=== PATIENT | female | born 1950 | race Caucasian/White ===

== ENCOUNTER 2018-06-14 14:13 | Outpatient (REF) | payer MEDICARE, SELFPAY ==
[2018-06-14 20:44] LABS: Anion Gap 8.7 mmol/L (3-11); BUN 17 mg/dL (7-18); CO2 28.3 mmol/L (21.0-32.0); CREATININE 1.08 mg/dL (0.55-1.02); Calcium 9.6 mg/dL (8.5-10.1); Chloride 104 mmol/L (98-107); Estimated GFR 50.16 (mL/min/1.73m2); Glucose 108 mg/dL (70-100); Sodium 141 mmol/L (136-145)
== END 2018-06-14 14:14 ==
LOC: NCHCN 14:13
PROVIDERS: PCP Nurse Practitioner Family; Visit Provider Nurse Practitioner Family
DX: E11.9 Type 2 diabetes mellitus without complications (principal); I10 Essential (primary) hypertension; R53.83 Other fatigue
CPT/HCPCS: 80048

== ENCOUNTER 2019-01-01 12:01 | Outpatient (REF) | payer MEDICARE, SELFPAY ==
[2019-01-01 21:56] LABS: Hemoglobin A1C 6.3 % (4.5-6.2)
[2019-01-01 22:01] LABS: Cholesterol 154 mg/dL (50-200); HDL Cholesterol 30 mg/dL (40-60); LDL CHOLESTEROL 97 mg/dL (<100); Triglyceride 177 mg/dL (30-150)
== END 2019-01-01 12:21 ==
LOC: NCHCN 12:01
PROVIDERS: PCP Nurse Practitioner Family; Visit Provider Registered Nurse
DX: E11.9 Type 2 diabetes mellitus without complications (principal); I10 Essential (primary) hypertension
CPT/HCPCS: 80061; 83721; 83036

== ENCOUNTER 2019-07-10 11:54 | Outpatient (REF) | payer MEDICARE, SELFPAY ==
[2019-07-10 21:14] LABS: BUN 15 mg/dL (7-18); Calcium 9.5 mg/dL (8.5-10.1); Chloride 104 mmol/L (98-107); Estimated GFR 54.66 (mL/min/1.73m2); Glucose 97 mg/dL (70-100); Potassium 4.3 mmol/L (3.5-5.1); Sodium 144 mmol/L (136-145)
[2019-07-10 21:36] LABS: COMMENT (LAB VIEW ONLY) < 13.00 mg/dL
== END 2019-07-10 12:14 ==
LOC: NCHCN 11:54
PROVIDERS: PCP Nurse Practitioner Family; Visit Provider Registered Nurse
DX: E11.9 Type 2 diabetes mellitus without complications (principal)
CPT/HCPCS: 80048; 82043; 82570

== ENCOUNTER 2020-05-26 22:27 | Outpatient (REF) | payer MEDICARE, SELFPAY ==
[2020-05-26 20:10] LABS: Hemoglobin A1C 6.2 % (3.8-5.6)
[2020-05-26 20:21] LABS: COMMENT (LAB VIEW ONLY) < 13.00 mg/dL
[2020-05-26 20:37] LABS: ALT 29 U/L (14-59); AST 13 U/L (15-37); Alkaline Phosphatase 121 U/L (46-116); Anion Gap 11.3 mmol/L (3-11); BUN 25 mg/dL (7-18); Bilirubin, Total 0.4 mg/dL (0.2-1.0); CO2 27.7 mmol/L (21.0-32.0); CREATININE 1.04 mg/dL (0.55-1.02); Calcium 9.7 mg/dL (8.5-10.1); Calculated LDL 114 mg/dL (<100); Chloride 105 mmol/L (98-107); Cholesterol 179 mg/dL (<200); Estimated GFR 52.09 (mL/min/1.73m2); Glucose 116 mg/dL (74-106); HDL Cholesterol 30 mg/dL (40-60); Potassium 4.1 mmol/L (3.5-5.1); Sodium 144 mmol/L (136-145); Total Protein 7.2 g/dL (6.4-8.2); Triglyceride 177 mg/dL (<150); Vitamin B12 296 pg/mL (193-986)
[2020-05-28 11:47] LABS: Hepatitis C Ab w Rflx HCV PCR Negative (Negative)
== END 2020-05-26 22:47 ==
LOC: NCHCN 22:27
PROVIDERS: PCP Nurse Practitioner Family; Visit Provider Nurse Practitioner Family
DX: E11.9 Type 2 diabetes mellitus without complications (principal); E78.5 Hyperlipidemia, unspecified; I10 Essential (primary) hypertension; Z11.59 Encounter for screening for other viral diseases
CPT/HCPCS: 80053; 80061; 86803; 82043; 82570; 82607; 83036

== ENCOUNTER 2020-07-09 10:34 | Outpatient (REF) | payer MEDICARE, SELFPAY ==
[2020-07-09 22:06] LABS: ALT 31 U/L (14-59); AST 16 U/L (15-37); Albumin 4.1 g/dL (3.4-5.0); Alkaline Phosphatase 134 U/L (46-116); Anion Gap 13.1 mmol/L (3-11); BUN 19 mg/dL (7-18); Bilirubin, Total 0.4 mg/dL (0.2-1.0); CO2 27.9 mmol/L (21.0-32.0); CREATININE 1.15 mg/dL (0.55-1.02); Calcium 9.4 mg/dL (8.5-10.1); Chloride 103 mmol/L (98-107); Estimated GFR 46.38 (mL/min/1.73m2); Glucose 121 mg/dL (74-106); Potassium 3.8 mmol/L (3.5-5.1); Sodium 144 mmol/L (136-145); Total Protein 7.5 g/dL (6.4-8.2)
[2020-07-09 22:18] LABS: Calculated LDL 91 mg/dL (<100); Cholesterol 152 mg/dL (<200); HDL Cholesterol 31 mg/dL (40-60); Triglyceride 154 mg/dL (<150)
== END 2020-07-09 10:54 ==
LOC: NCHCN 10:34
PROVIDERS: PCP Nurse Practitioner Family; Visit Provider Nurse Practitioner Family
DX: E78.5 Hyperlipidemia, unspecified (principal); I10 Essential (primary) hypertension; E11.9 Type 2 diabetes mellitus without complications
CPT/HCPCS: 80053; 80061

== ENCOUNTER 2020-11-15 15:10 | Outpatient (REF) | payer MEDICARE, SELFPAY ==
[2020-11-15 14:09] LABS: Anion Gap 9.9 mmol/L (3-11); BUN 21 mg/dL (7-18); CO2 28.1 mmol/L (21.0-32.0); Calcium 9.5 mg/dL (8.5-10.1); Chloride 104 mmol/L (98-107); Glucose 127 mg/dL (74-106); Potassium 4.2 mmol/L (3.5-5.1); Sodium 142 mmol/L (136-145)
--- OUTSIDE RECORDS SUMMARY | 2020-11-15 15:15 | XMS_ITS ---
:1950 Author Care Team Providers Name Role Phone ADAM ROWLEY MD Specialty Sales Representative [phone] NICHOLE CASH MD Stave Hewer [phone] BREANNA HENSLEY Primary Care Provider [phone] Allergies Code Code System Name Reaction Severity Status Onset NKDA ? Medications Name Status Start Date Stop Date ? ? Advair HFA 230 mcg-21 Completed ? 06/19/2019 mcg/actuation aerosol inhaler advair hfa 230-21 mcg/act aero Completed ? 0 03/18/2018 aspirin 81 mg tablet,delayed release Active ? Not available Take 1 tablet every day by oral route. azithromycin 250 mg tablet Completed ? 07/05 azithromycin 250 mg tabs Completed ? 020 cephalexin 500 mg caps Completed ? 8 chlorthalidone 50 mg tablet Completed ? 01/2018 chlorthalidone 50 mg tabs Completed ? 2017 citalopram hydrobromide 20 mg Completed ? tabs Combivent Respimat 20 mcg-100 Completed ? mcg/actuation solution for inhalation combivent respimat 20-100 Completed ? 2017 mcg/act aers fluticasone propionate 50 Completed ? 2019 mcg/act susp fluticasone propionate 50 Active ? Not av ailable mcg/actuation nasal spray,suspension losartan 100 mg tablet Active ? Not avail able losartan potassium 100 mg tabs Completed ? 0 07/05/2020 Mapap (acetaminophen) 325 mg Active ? Not available tablet metformin 500 mg tablet Active ? Not avai lable metformin hcl 500 mg tabs Completed ? 2019 metformin hydrochloride 500 mg Completed ? 0 07/05/2020 tabs metoprolol succinate ER 50 mg Completed ? tablet,extended release 24 hr metoprolol succinate er 50 mg Completed ? tb24 mirtazapine 15 mg tablet Completed ? 020 mirtazapine 15 mg tabs Completed ? 0 mirtazapine 30 mg tablet Active ? Not benita ilable mirtazapine 30 mg tabs Completed ? 0 nicotine (polacrilex) 2 mg Active ? Not a vailable buccal lozenge nicotine 21 mg/24 hr daily Completed ? 03/18 transdermal patch nyamyc 899132 unit/gm powd Completed ? 03/18 nystatin 060304 unit/gm powd Completed ? Nystop 100,000 unit/gram topical Completed ? 07/05/2020 powder nystop 532637 unit/gm powd Completed ? 07/05 OneTouch Delica Lancets 30 gauge Active ? Not available OneTouch Verio Meter Active ? Not availab le OneTouch Verio test strips Active ? Not a vailable oxaprozin 600 mg tablet Completed ? 03/18/20 18 oxaprozin 600 mg tabs Completed ? 03/18/2018 potassium chloride ER 10 mEq Active ? Not available capsule,extended release potassium chloride er 10 meq Completed ? cpcr potassium chloride ER 20 mEq Completed ? 01/2018 tablet,extended release(part/cryst) potassium chloride er 20 meq Completed ? 01/2018 tbcr pravastatin 40 mg tablet Completed ? 020 pravastatin 80 mg tablet Active ? Not benita ilable pravastatin sodium 40 mg tabs Completed ? PreserVision AREDS-2 Active 04/14/2019 Not availab le 1 qam and qhs proair hfa 108 (90 base) mcg/act Completed ? 03/18/2018 aers ProAir HFA 90 mcg/actuation Active ? Not available aerosol inhaler proair respiclick 108 (90 base) Completed ? 07/05/2020 mcg/act aepb ProAir RespiClick 90 Active ? Not availab le mcg/actuation breath activated terbinafine HCl 1 % topical Completed ? 01/2018 cream torsemide 20 mg tablet Active ? Not avail able torsemide 20 mg tabs Completed ? 07/05/2020 Trelegy Ellipta 100 mcg-62.5 Active ? Not available mcg-25 mcg powder for inhalation trelegy ellipta 100-62.5-25 Completed ? 06/16 mcg/inh aepb Vitamin B12 Active ? Not available Problems Name Status Onset Date Source ? Diabetes Mellitus Active 03/18/2018 ? Chronic Obstructive Lung Disease Active 03/18/2018 ? Procedures Date Name Performed by ? 03/22/2018 LDCT, Chest, for Lung Cancer [facility] (Internal) Screening [address] [place] [address] ([address]) 03/18/2019 LDCT, Chest, for Lung Cancer [facility] (Internal) Screening [address] [place] [address] (Work [address]) 06/19/2019 LDCT, Chest, for Lung Cancer [facility] (Internal) Screening [address] [place] [address] ([address]) 05/10/2020 LDCT, Chest, for Lung Cancer [facility] (Internal) Screening [address] [place] [address] (Work [address]) 05/10/2020 LDCT, Chest, for Lung Cancer [facility] (Internal) Screening [address] [place] [address] (Work [address]) 07/05/2020 LDCT, Chest, for Lung Cancer [facility] (Internal) Screening [address] [place] [address] (Work [address]) Results Lab Results None recorded. Past Encounters 07/05/2020 Chronic Obstructive Lung Disease; Ex-smo mary Rowley MD: [address] [place] [address], Ph. 06/19/2019 Chronic Obstructive Lung Disease; Ex-smo mary Rowley MD: [address] [place] [address], Ph. Social History Tobacco Smoking Status Former Smoker Notes: February 12t h quit Vaccine List Vaccine Type influenza, high-dose, quadrivalent 07/05/2020?0.7 mL pneumococcal conjugate PCV 13 12/20/2015 pneumococcal polysaccharide PPV23 11/15/2002 08/01/2013 03/18/2018?0.5 mL 03/18/2018?0.5 mL Plan of Care Reminders Provider Appointments None ? ? recorded. Lab None ? ? recorded. Referral None ? ? recorded. Procedures None ? ? recorded. Surgeries None ? ? recorded. Imaging None ? ? recorded. Vitals 07/05/2020 03:30PM Follow Up 30 Weight Blood Pressure 111.3 kg 182/87 mm[Hg] 06/19/2019 11:30AM Follow Up 30 Height Weight BMI Blood Pressure 165.1 cm 108.9 kg 40 kg/m2 162/85 mm[Hg] 05/22/2018 03:00PM Consult 45 Height Weight BMI Blood Pressure 165.1 cm 109 kg 40 kg/m2 138/70 mm[Hg] 03/18/2018 10:00AM Consult 45 Height Weight BMI Blood Pressure 165.1 cm 109.77 kg 40.3 kg/m2 148/70 mm[Hg]
== END 2020-11-15 15:30 ==
LOC: NCHCN 15:10
PROVIDERS: PCP Nurse Practitioner Family; Visit Provider Nurse Practitioner Family
DX: I10 Essential (primary) hypertension (principal)
CPT/HCPCS: 80048

== ENCOUNTER 2021-05-24 14:55 | Outpatient (REF) | payer MEDICARE, SELFPAY ==
[2021-05-24 21:01] LABS: Hemoglobin A1C 6.5 % (<5.7)
[2021-05-24 21:30] LABS: ALT 21 U/L (14-59); AST 16 U/L (15-37); Albumin 3.9 g/dL (3.4-5.0); Alkaline Phosphatase 122 U/L (46-116); BUN 20 mg/dL (7-18); Bilirubin, Total 0.5 mg/dL (0.2-1.0); Calcium 9.3 mg/dL (8.5-10.1); Calculated LDL 84 mg/dL (<100); Chloride 107 mmol/L (98-107); Cholesterol 146 mg/dL (<200); Estimated GFR 54.35 (mL/min/1.73m2); Glucose 114 mg/dL (74-106); HDL Cholesterol 30 mg/dL (40-60); Potassium 4.4 mmol/L (3.5-5.1); Sodium 145 mmol/L (136-145); Total Protein 7.1 g/dL (6.4-8.2); Triglyceride 164 mg/dL (<150); Vitamin B12 762 pg/mL (193-986)
[2021-05-25 16:35] LABS: GGT 99 U/L (5-55)
== END 2021-05-24 14:56 | disposition home or self-care (01) ==
LOC: NCHCN 14:55
PROVIDERS: PCP Nurse Practitioner Family; Visit Provider Nurse Practitioner Family
DX: E11.9 Type 2 diabetes mellitus without complications (principal); R74.8 Abnormal levels of other serum enzymes; E78.5 Hyperlipidemia, unspecified; I10 Essential (primary) hypertension
CPT/HCPCS: 80053; 80061; 82607; 82977; 83036

== ENCOUNTER 2021-12-08 18:38 | Outpatient (REF) | payer MEDICARE, SELFPAY ==
[2021-12-08 14:57] LABS: ALT 21 U/L (14-59); AST 10 U/L (15-37); Albumin 3.6 g/dL (3.4-5.0); Alkaline Phosphatase 115 U/L (46-116); Anion Gap 7.6 mmol/L (3-11); BUN 19 mg/dL (7-18); Bilirubin, Total 0.3 mg/dL (0.2-1.0); CO2 28.4 mmol/L (21.0-32.0); CREATININE 0.9 mg/dL (0.55-1.02); Calcium 9.3 mg/dL (8.5-10.1); Chloride 108 mmol/L (98-107); Glucose 118 mg/dL (74-106); Potassium 4.1 mmol/L (3.5-5.1); Sodium 144 mmol/L (136-145); Total Protein 6.8 g/dL (6.4-8.2)
== END 2021-12-08 18:39 | disposition home or self-care (01) ==
LOC: NCHCN 18:38
PROVIDERS: PCP Nurse Practitioner Family; Visit Provider Nurse Practitioner Family
DX: E11.9 Type 2 diabetes mellitus without complications (principal); R74.8 Abnormal levels of other serum enzymes
CPT/HCPCS: 80053

== ENCOUNTER 2022-06-08 15:18 | Outpatient (REF) | payer MEDICARE, SELFPAY ==
[2022-06-08 16:10] LABS: ALT 29 U/L (14-59); AST 18 U/L (15-37); Albumin 3.7 g/dL (3.4-5.0); Alkaline Phosphatase 112 U/L (46-116); Anion Gap 9.8 mmol/L (3-11); BUN 19 mg/dL (7-18); Bilirubin, Total 0.6 mg/dL (0.2-1.0); CO2 31.2 mmol/L (21.0-32.0); CREATININE 0.9 mg/dL (0.55-1.02); Calcium 9.2 mg/dL (8.5-10.1); Calculated LDL 69 mg/dL (<100); Chloride 105 mmol/L (98-107); Cholesterol 135 mg/dL (<200); Glucose 115 mg/dL (74-106); HDL Cholesterol 33 mg/dL (40-60); Potassium 4.2 mmol/L (3.5-5.1); Sodium 146 mmol/L (136-145); Total Protein 7.5 g/dL (6.4-8.2); Triglyceride 167 mg/dL (<150)
[2022-06-08 16:30] LABS: Vitamin D 25 Total 11.7 ng/mL (30-100)
== END 2022-06-08 15:19 | disposition home or self-care (01) ==
LOC: NCHCN 15:18
PROVIDERS: PCP Nurse Practitioner Family; Visit Provider Nurse Practitioner Family
DX: E78.5 Hyperlipidemia, unspecified (principal); M85.80 Other specified disorders of bone density and structure, unspecified site; I10 Essential (primary) hypertension
CPT/HCPCS: 80053; 80061; 82306

== ENCOUNTER 2022-09-18 22:01 | Outpatient (REF) | payer MEDICARE, SELFPAY ==
[2022-09-18 22:10] LABS: Anion Gap 7.1 mmol/L (3-11); BUN 21 mg/dL (7-18); CO2 30.9 mmol/L (21.0-32.0); Calcium 9.9 mg/dL (8.5-10.1); Chloride 105 mmol/L (98-107); Estimated GFR 59.12 (mL/min/1.73m2); Glucose 112 mg/dL (74-106); Potassium 4.7 mmol/L (3.5-5.1); Sodium 143 mmol/L (136-145)
[2022-09-18 22:37] LABS: Vitamin D 25 Total 22.1 ng/mL (30-100)
== END 2022-09-18 22:02 | disposition home or self-care (01) ==
LOC: NCHCN 22:01
PROVIDERS: PCP Nurse Practitioner Family; Visit Provider Nurse Practitioner Family
DX: E11.9 Type 2 diabetes mellitus without complications (principal); I10 Essential (primary) hypertension; E55.9 Vitamin D deficiency, unspecified; F43.23 Adjustment disorder with mixed anxiety and depressed mood; R91.1 Solitary pulmonary nodule
CPT/HCPCS: 80048; 82306

== ENCOUNTER 2022-11-24 12:58 | Outpatient (REF) | payer MEDICARE, SELFPAY ==
[2022-11-24 16:56] LABS: Vitamin D 25 Total 27.6 ng/mL (30-100)
== END 2022-11-24 12:59 | disposition home or self-care (01) ==
LOC: NCHCN 12:58
PROVIDERS: PCP Nurse Practitioner Family; Visit Provider Nurse Practitioner Family
DX: E55.9 Vitamin D deficiency, unspecified (principal)
CPT/HCPCS: 82306

== ENCOUNTER 2022-12-22 21:30 | Outpatient (REF) | payer MEDICARE, SELFPAY ==
[2022-12-22 22:17] LABS: COMMENT (LAB VIEW ONLY) 128.29 mg/dL; Microalb ug/mg Crea 4.2 ug/mg Cr
== END 2022-12-22 21:31 | disposition home or self-care (01) ==
LOC: NCHCN 21:30
PROVIDERS: PCP Nurse Practitioner Family; Visit Provider Nurse Practitioner Family
DX: E11.9 Type 2 diabetes mellitus without complications (principal)
CPT/HCPCS: 82043; 82570

== ENCOUNTER 2023-06-26 19:45 | Outpatient (REF) | payer MEDICARE, SELFPAY ==
[2023-06-26 17:52] LABS: ALT 21 U/L (14-59); AST 12 U/L (15-37); Albumin 3.4 g/dL (3.4-5.0); Alkaline Phosphatase 104 U/L (46-116); Anion Gap 8.8 mmol/L (3-11); BUN 18 mg/dL (7-18); Bilirubin, Total 0.4 mg/dL (0.2-1.0); CO2 27.2 mmol/L (21.0-32.0); Calcium 9.6 mg/dL (8.5-10.1); Chloride 106 mmol/L (98-107); Estimated GFR 58.75 (mL/min/1.73m2); Glucose 110 mg/dL (74-106); Potassium 4.4 mmol/L (3.5-5.1); Sodium 142 mmol/L (136-145); TSH (W/Ref FT4) 1.67 uIU/mL (0.36-3.74); Total Protein 7.1 g/dL (6.4-8.2); Vitamin B12 1894 pg/mL (193-986)
== END 2023-06-26 19:46 | disposition home or self-care (01) ==
LOC: NCHCN 19:45
PROVIDERS: PCP Nurse Practitioner Family; Visit Provider Nurse Practitioner Family
DX: E11.9 Type 2 diabetes mellitus without complications (principal); R41.3 Other amnesia; I10 Essential (primary) hypertension; E55.9 Vitamin D deficiency, unspecified
CPT/HCPCS: 80053; 82306; 82043; 82570; 82607; 84443

== ENCOUNTER 2024-05-19 18:27 | Outpatient (REF) | payer MEDICARE, SELFPAY ==
[2024-05-20 07:54] LABS: ALT 21 U/L (14-59); AST 12 U/L (15-37); Albumin 3.8 g/dL (3.4-5.0); Alkaline Phosphatase 115 U/L (46-116); Anion Gap 9.1 mmol/L (3-11); BUN 22 mg/dL (7-18); CO2 31.9 mmol/L (21.0-32.0); CREATININE 1.2 mg/dL (0.55-1.02); Calcium 10.5 mg/dL (8.5-10.1); Calculated LDL 63 mg/dL (<100); Chloride 105 mmol/L (98-107); Cholesterol 146 mg/dL (<200); Estimated GFR 46.91 (mL/min/1.73m2); Glucose 138 mg/dL (74-106); HDL Cholesterol 33 mg/dL (40-60); Potassium 4.7 mmol/L (3.5-5.1); Sodium 146 mmol/L (136-145); Total Protein 7.1 g/dL (6.4-8.2); Triglyceride 252 mg/dL (<150); Vitamin B12 > 2000 pg/mL (193-986)
== END 2024-05-19 18:28 | disposition home or self-care (01) ==
LOC: NCHCN 18:27
PROVIDERS: PCP Nurse Practitioner Family; Visit Provider Nurse Practitioner Family
DX: E11.9 Type 2 diabetes mellitus without complications (principal); R79.89 Other specified abnormal findings of blood chemistry; Z79.899 Other long term (current) drug therapy
CPT/HCPCS: 80053; 80061; 82607

== ENCOUNTER 2024-07-23 18:25 | Outpatient (REF) | payer MEDICARE, SELFPAY ==
[2024-07-23 22:29] LABS: ALT 20 U/L (14-59); AST 12 U/L (15-37); Albumin 3.9 g/dL (3.4-5.0); Alkaline Phosphatase 125 U/L (46-116); Anion Gap 10.1 mmol/L (3-11); BUN 27 mg/dL (7-18); Bilirubin, Total 0.48 mg/dL (0.2-1.0); CO2 31.9 mmol/L (21.0-32.0); CREATININE 1.2 mg/dL (0.55-1.02); Calcium 10.2 mg/dL (8.5-10.1); Chloride 105 mmol/L (98-107); Estimated GFR 46.91 (mL/min/1.73m2); Glucose 111 mg/dL (74-106); Potassium 4.8 mmol/L (3.5-5.1); Sodium 147 mmol/L (136-145); Total Protein 7.5 g/dL (6.4-8.2); Vitamin D 25 Total 58.2 ng/mL (30-100)
[2024-07-24 20:55] LABS: Parathyroid Hormone,Intact 124 pg/mL (19-88)
== END 2024-07-23 18:26 | disposition home or self-care (01) ==
LOC: NCHCN 18:25
PROVIDERS: PCP Nurse Practitioner Family; Visit Provider Nurse Practitioner Family
DX: E83.52 Hypercalcemia (principal)
CPT/HCPCS: 80053; 82306; 83970

== ENCOUNTER 2024-08-14 09:56 | Outpatient (REF) | payer MEDICARE, SELFPAY ==
[2024-08-14 16:41] LABS: COMMENT (LAB VIEW ONLY) 135.75 mg/dL; Microalb ug/mg Crea 8.3 ug/mg Cr
== END 2024-08-14 09:57 | disposition home or self-care (01) ==
LOC: NCHCN 09:56
PROVIDERS: PCP Nurse Practitioner Family; Visit Provider Nurse Practitioner Family
DX: E11.9 Type 2 diabetes mellitus without complications (principal)
CPT/HCPCS: 82043; 82570

== ENCOUNTER 2024-08-26 12:39 | Outpatient (REF) | payer MEDICARE, SELFPAY ==
[2024-08-26 15:15] LABS: Anion Gap 6.8 mmol/L (3-11); BUN 14 mg/dL (7-18); CO2 30.2 mmol/L (21.0-32.0); CREATININE 1.1 mg/dL (0.55-1.02); Calcium 10.4 mg/dL (8.5-10.1); Chloride 108 mmol/L (98-107); Estimated GFR 52.08 (mL/min/1.73m2); Glucose 106 mg/dL (74-106); Potassium 4.4 mmol/L (3.5-5.1); Sodium 145 mmol/L (136-145)
== END 2024-08-26 12:40 | disposition home or self-care (01) ==
LOC: NCHCN 12:39
PROVIDERS: PCP Nurse Practitioner Family; Visit Provider Nurse Practitioner Family
DX: I10 Essential (primary) hypertension (principal)
CPT/HCPCS: 80048

== ENCOUNTER 2025-09-16 13:46 | Outpatient (REF) | payer MEDICARE, SELFPAY ==
[2025-09-16 21:00] LABS: HCT 46.7 % (36.0-46.0); HGB 14.4 g/dL (11.2-15.7); MCH 26.5 pg (27.0-33.0); MCHC 30.8 % (32.0-36.0); MCV 86 fL (80-95); MPV 11.1 fL (8.0-11.0); Platelet Count 337 10^3/uL (130-400); RBC 5.43 10^6/uL (3.93-5.22); RDW 14.3 % (11.7-14.6); RDW-SD 44.3 fL; WBC 11.08 10^3/uL (4.4-10.8)
[2025-09-16 21:13] LABS: Vitamin B12 573 pg/mL (211-911)
[2025-09-16 21:15] LABS: Hemoglobin A1C 5.5 % (<5.7)
[2025-09-16 21:26] LABS: ALT 13 U/L (10-49); AST 18 U/L (<34); Albumin 4.2 g/dL (3.2-5.0); Alkaline Phosphatase 118 U/L (46-116); Anion Gap 7.3 mmol/L (3-11); BUN 16 mg/dL (9-23); Bilirubin, Total 0.50 mg/dL (0.2-1.2); CO2 32.7 mmol/L (20.0-31.0); Calcium 10.7 mg/dL (8.3-10.6); Chloride 106 mmol/L (98-107); Cholesterol 149 mg/dL (<200); Glucose 88 mg/dL (74-106); HDL Cholesterol 34 mg/dL (>40); Potassium 4.9 mmol/L (3.5-5.1); Sodium 146 mmol/L (136-145); Total Protein 7.3 g/dL (5.7-8.2)
== END 2025-09-16 13:47 | disposition home or self-care (01) ==
LOC: NCHCN 13:46
PROVIDERS: PCP Nurse Practitioner Family; Visit Provider Nurse Practitioner Family
DX: R73.03 Prediabetes (principal); I10 Essential (primary) hypertension; I25.10 Atherosclerotic heart disease of native coronary artery without angina pectoris; Z51.81 Encounter for therapeutic drug level monitoring; E78.5 Hyperlipidemia, unspecified
CPT/HCPCS: 80053; 80061; 85027; 82043; 82570; 82607; 83036